=== PATIENT | male | born 1970 | race Hispanic/Latino ===

== ENCOUNTER 2020-11-21 18:19 | Inpatient (IN) | payer MEDICARE ==
[~2020-11-21] VITALS: Ht 180.3 cm; Wt 118.8 kg
[2020-11-21 18:20] VITALS: BP 156/83
[2020-11-21 19:00] VITALS: BP 161/97
[2020-11-21] MEDS ORDERED: VANCOMYCIN 2GM/500ML NS IV ONE ×2 (19:00)
[2020-11-21] MEDS ORDERED: 0.9%NACL 10ML VIAL IVP PRN (19:00)
[2020-11-21 19:51] LABS: HEMATOCRIT 35.9 % (42-54); MEAN CORPUSCULAR HEMOGLOBIN 29.7 pg (27.0-33.0); MEAN CORPUSCULAR HGB CONC 31.8 g/dL (32.0-36.0); MEAN CORPUSCULAR VOLUME 93.5 fL (79-99); RED BLOOD CELL COUNT(AUTO) 3.84 MIL/uL (4.50-6.20)
[2020-11-21 20:10] LABS: ALBUMIN 2.5 g/dL (3.5-5.0); BILIRUBIN,TOTAL 1.1 mg/dL (0.2-1.0); CREATININE 5.9 mg/dL (0.5-1.5); POTASSIUM 4.9 mmol/L (3.5-5.1); TOTAL PROTEIN, SERUM 8.5 g/dL (6.0-8.3)
[2020-11-21] MEDS: 0.9%NACL 50ML 50 ML IV SCH (21:55)
[2020-11-21] MEDS: ZOSYN 3.375GM +NS 50ML IV SCH (21:55)
[2020-11-21] MEDS ORDERED: METO50TA18 PO (22:04)
[2020-11-21] MEDS ORDERED: MONT10TA32 PO (22:04)
[2020-11-21] MEDS ORDERED: FLUT16H NASAL (22:04)
[2020-11-21] MEDS ORDERED: TIMO5DRO35 OD (22:06)
[2020-11-21] MEDS ORDERED: DICL100G31 TP (22:14)
[2020-11-21] MEDS ORDERED: INSU100I35 SQ (22:14)
[2020-11-21] MEDS ORDERED: ACET-2743 PO ×2 (22:35→22:36)
[2020-11-21] MEDS ORDERED: FLUTICASONE PROPIONATE 50MCG/SPRAY 16 GM BOTTLE NS PRN (23:00)
[2020-11-21] MEDS ORDERED: DICLOFENAC SODIUM 100 GM TP PRN (23:00)
[2020-11-21] MEDS ORDERED: ACETAMINOPHEN 500 MG TABLET PO PRN ×2 (23:00)
[2020-11-21] MEDS: MORPHINE 2 MG SYG IVP PRN (23:55)
[2020-11-22] VITALS (7 sets, daily range): BP systolic 117–174; BP diastolic 66–83
[2020-11-22] MEDS: INSULIN HUMULIN 70/30 100 UNIT/ML 3ML SQ SCH ×3 (08:28→16:46)
[2020-11-22] MEDS: ZOSYN 3.375GM +NS 50ML IV SCH ×2 (08:29→22:51)
[2020-11-22] MEDS ORDERED: MONTELUKAST SODIUM 10 MG TAB PO SCH (09:00)
[2020-11-22] MEDS ORDERED: METOPROLOL TARTRATE 50 MG TAB PO SCH (09:00)
[2020-11-22] MEDS: 0.9%NACL 50ML 50 ML IV SCH ×2 (09:57→22:51)
[2020-11-22] MEDS ORDERED: FLUTICASONE PROPIONATE 50MCG/SPRAY 16 GM BOTTLE NS PRN (13:30)
[2020-11-22] MEDS ORDERED: DiphenhydrAMINE HCL 50 MG/ML VIAL IVP PRN (14:00)
[2020-11-22 14:19] LABS: HEMATOCRIT 33.2 % (42-54); MEAN CORPUSCULAR HEMOGLOBIN 29.8 pg (27.0-33.0); MEAN CORPUSCULAR HGB CONC 31.9 g/dL (32.0-36.0); MEAN CORPUSCULAR VOLUME 93.3 fL (79-99); RED BLOOD CELL COUNT(AUTO) 3.56 MIL/uL (4.50-6.20); WHITE BLOOD COUNT (AUTO) 9.4 K/uL (4.8-10.8)
[2020-11-22 14:32] LABS: POTASSIUM 4.7 mmol/L (3.5-5.1)
[2020-11-22 14:36] LABS: INR 1.13 (0.85-1.15); PROTHROMBIN TIME 12.2 SEC (9.6-11.6)
[2020-11-22 14:37] LABS: PARTIAL THROMBOPLASTIN TIME 27.1 SEC (26.3-35.5)
[2020-11-22] MEDS ORDERED: TETANUS/DIPHTHERIA TOXOID [ADULT] 0.5 ML VIAL IM ONE (15:00)
[2020-11-22] MEDS: MONTELUKAST SODIUM 10 MG TAB PO SCH (20:00)
[2020-11-22] MEDS: METOPROLOL TARTRATE 50 MG TAB PO SCH (22:53)
[2020-11-22] MEDS: MORPHINE 2 MG SYG IVP PRN (23:04)
[2020-11-23] VITALS (26 sets, daily range): BP systolic 114–168; BP diastolic 60–97
[2020-11-23] MEDS: INSULIN HUMULIN 70/30 100 UNIT/ML 3ML SQ SCH ×2 (05:42→16:30)
[2020-11-23 06:33] LABS: HEMATOCRIT 31.8 % (42-54); MEAN CORPUSCULAR HEMOGLOBIN 30.1 pg (27.0-33.0); MEAN CORPUSCULAR HGB CONC 32.4 g/dL (32.0-36.0); PLATELET COUNT (AUTO) 231 K/uL (130-400); RED BLOOD CELL COUNT(AUTO) 3.42 MIL/uL (4.50-6.20); RED CELL DISTRIBUTION WIDTH 13.9 % (11.0-15.5); WHITE BLOOD COUNT (AUTO) 8.7 K/uL (4.8-10.8)
[2020-11-23 06:34] LABS: EOSINOPHILS % (AUTO) 5.1 % (0.0-8.0); MONOCYTES % (AUTO) 8.8 % (3.0-13.0); NEUTROPHILS % (AUTO) 75.6 % (40.0-77.0)
[2020-11-23 06:37] LABS: CREATININE 7.8 mg/dL (0.5-1.5); MAGNESIUM 2.3 mg/dL (1.80-2.40); POTASSIUM 5.3 mmol/L (3.5-5.1)
[2020-11-23 07:19] LABS: HEMOGLOBIN A1C 8.6 % (4.0-6.0)
[2020-11-23] MEDS: 0.9%NACL 50ML 50 ML IV SCH ×2 (09:18→21:00)
[2020-11-23] MEDS: ZOSYN 3.375GM +NS 50ML IV SCH ×2 (09:18→21:00)
[2020-11-23] MEDS: MUPIROCIN OINTMENT 22 GM TUBE TP SCH (10:34)
[2020-11-23] MEDS ORDERED: HEPARIN 1,000 UNIT VIAL ONE (15:08)
[2020-11-23] MEDS ORDERED: MIDAZOLAM HCL 1 MG/ML 2ML VIAL ONE (15:09)
[2020-11-23] MEDS ORDERED: FENTANYL CITRATE PF 50 MCG/1 ML 2ML VIAL ONE (15:09)
[2020-11-23] MEDS ORDERED: HEPARIN 10,000 UNIT/10ML (1,000 UNIT/ML) VIAL ONE (15:09)
[2020-11-23] MEDS ORDERED: IODIXANOL 320 MG/ML 100 ML VIAL ONE (15:09)
[2020-11-23] MEDS ORDERED: NITROGLYCERIN 2 MG VIAL IV ONE (15:09)
[2020-11-23] MEDS ORDERED: LIDOCAINE HCL 400MG/20ML VIAL ONE (15:12)
[2020-11-23] MEDS ORDERED: 0.9%NACL 1000ML 1,000 ML IV SCH (16:30)
[2020-11-23] MEDS: MONTELUKAST SODIUM 10 MG TAB PO SCH (23:30)
[2020-11-23] MEDS: METOPROLOL TARTRATE 50 MG TAB PO SCH (23:30)
[2020-11-24] VITALS (7 sets, daily range): BP systolic 116–165; BP diastolic 35–88
[2020-11-24] MEDS: 0.9% NACL 250ML 250 ML IV SCH (01:15)
[2020-11-24] MEDS: VANCOMYCIN KIT 1 GM/250 ML IV.KIT IV SCH (01:15)
[2020-11-24 05:45] LABS: HEMATOCRIT 31.9 % (42-54); MEAN CORPUSCULAR HEMOGLOBIN 30.1 pg (27.0-33.0); MEAN CORPUSCULAR HGB CONC 32.9 g/dL (32.0-36.0); MEAN CORPUSCULAR VOLUME 91.4 fL (79-99); RED BLOOD CELL COUNT(AUTO) 3.49 MIL/uL (4.50-6.20); RED CELL DISTRIBUTION WIDTH 14.3 % (11.0-15.5); WHITE BLOOD COUNT (AUTO) 10.2 K/uL (4.8-10.8)
[2020-11-24 06:00] LABS: CREATININE 6.5 mg/dL (0.5-1.5); POTASSIUM 4.6 mmol/L (3.5-5.1)
[2020-11-24] MEDS: INSULIN HUMULIN 70/30 100 UNIT/ML 3ML SQ SCH ×2 (07:07→21:06)
[2020-11-24] MEDS: ZOSYN 3.375GM +NS 50ML IV SCH ×2 (09:56→20:53)
[2020-11-24] MEDS: 0.9%NACL 50ML 50 ML IV SCH ×2 (09:56→20:53)
[2020-11-24] MEDS: MUPIROCIN OINTMENT 22 GM TUBE TP SCH (09:57)
[2020-11-24] MEDS: MONTELUKAST SODIUM 10 MG TAB PO SCH (20:52)
[2020-11-24] MEDS: METOPROLOL TARTRATE 50 MG TAB PO SCH (20:52)
[2020-11-25] VITALS (19 sets, daily range): BP systolic 101–156; BP diastolic 31–86
[2020-11-25] MEDS: MORPHINE 2 MG SYG IVP PRN
[2020-11-25] MEDS: INSULIN HUMULIN 70/30 100 UNIT/ML 3ML SQ SCH ×2 (04:56→16:30)
[2020-11-25 08:14] LABS: HEPATITIS Bs ANTIGEN SCREEN P Negative (Negative)
[2020-11-25] MEDS: ZOSYN 3.375GM +NS 50ML IV SCH ×2 (09:22→20:42)
[2020-11-25] MEDS: 0.9%NACL 50ML 50 ML IV SCH ×2 (09:22→20:42)
[2020-11-25] MEDS: MUPIROCIN OINTMENT 22 GM TUBE TP SCH (11:05)
[2020-11-25] MEDS ORDERED: LIDOCAINE HCL 400MG/20ML VIAL ONE (12:53)
[2020-11-25] MEDS ORDERED: BUPIVACAINE/PF 0.5% 10ML VIAL ONE (12:53)
[2020-11-25] MEDS ORDERED: ONDANSETRON 4MG INJ ONE (13:03)
[2020-11-25] MEDS ORDERED: MIDAZOLAM HCL 1 MG/ML 2ML VIAL ONE ×2 (13:03→13:26)
[2020-11-25] MEDS ORDERED: LIDOCAINE PF 100MG/5ML (2%) SYRINGE 5ML ONE (13:03)
[2020-11-25] MEDS ORDERED: FENTANYL CITRATE PF 50 MCG/1 ML 2ML VIAL ONE (13:03)
[2020-11-25] MEDS ORDERED: PROPOFOL 10 MG/ML 20ML VIAL IV ONE (13:03)
[2020-11-25] MEDS: MONTELUKAST SODIUM 10 MG TAB PO SCH (20:42)
[2020-11-25] MEDS: METOPROLOL TARTRATE 50 MG TAB PO SCH (20:42)
[2020-11-26] VITALS (22 sets, daily range): BP systolic 106–148; BP diastolic 58–80
[2020-11-26] MEDS: 0.9% NACL 250ML 250 ML IV SCH (02:35)
[2020-11-26] MEDS: VANCOMYCIN KIT 1 GM/250 ML IV.KIT IV SCH (02:35)
[2020-11-26] MEDS: INSULIN HUMULIN 70/30 100 UNIT/ML 3ML SQ SCH ×2 (08:37→16:51)
[2020-11-26] MEDS: MUPIROCIN OINTMENT 22 GM TUBE TP SCH (09:00)
[2020-11-26] MEDS: ZOSYN 3.375GM +NS 50ML IV SCH ×2 (09:28→20:13)
[2020-11-26] MEDS: 0.9%NACL 50ML 50 ML IV SCH ×2 (09:29→20:14)
[2020-11-26] MEDS: MONTELUKAST SODIUM 10 MG TAB PO SCH (20:13)
[2020-11-26] MEDS: METOPROLOL TARTRATE 50 MG TAB PO SCH (20:13)
[2020-11-27 03:30] VITALS: BP 110/62
[2020-11-27 05:43] LABS: HEMATOCRIT 31.8 % (42-54); MEAN CORPUSCULAR HEMOGLOBIN 29.7 pg (27.0-33.0); MEAN CORPUSCULAR HGB CONC 31.8 g/dL (32.0-36.0); MEAN CORPUSCULAR VOLUME 93.5 fL (79-99); RED BLOOD CELL COUNT(AUTO) 3.4 MIL/uL (4.50-6.20); RED CELL DISTRIBUTION WIDTH 14.6 % (11.0-15.5)
[2020-11-27 06:06] LABS: MAGNESIUM 2.2 mg/dL (1.80-2.40); POTASSIUM 4.2 mmol/L (3.5-5.1)
[2020-11-27 07:36] VITALS: BP 139/73
[2020-11-27] MEDS: INSULIN HUMULIN 70/30 100 UNIT/ML 3ML SQ SCH ×2 (08:05→18:03)
[2020-11-27] MEDS: MUPIROCIN OINTMENT 22 GM TUBE TP SCH (09:00)
[2020-11-27] MEDS: ZOSYN 3.375GM +NS 50ML IV SCH ×2 (09:18→20:27)
[2020-11-27] MEDS: 0.9%NACL 50ML 50 ML IV SCH ×2 (09:19→20:27)
[2020-11-27 10:45] VITALS: BP 121/70
[2020-11-27 16:22] VITALS: BP 131/73
[2020-11-27] MEDS: METOPROLOL TARTRATE 50 MG TAB PO SCH (20:26)
[2020-11-27] MEDS: MONTELUKAST SODIUM 10 MG TAB PO SCH (20:26)
[2020-11-27 20:28] VITALS: BP 153/96
[2020-11-27 23:25] VITALS: BP 141/86
[2020-11-28] VITALS (19 sets, daily range): BP systolic 141–191; BP diastolic 70–115
[2020-11-28] MEDS: ZOSYN 3.375GM +NS 50ML IV SCH (08:32)
[2020-11-28] MEDS: 0.9%NACL 50ML 50 ML IV SCH (08:32)
[2020-11-28] MEDS: MUPIROCIN OINTMENT 22 GM TUBE TP SCH (08:33)
[2020-11-28] MEDS: INSULIN HUMULIN 70/30 100 UNIT/ML 3ML SQ SCH (08:35)
[2020-11-28] MEDS: VANCOMYCIN KIT 1 GM/250 ML IV.KIT IV SCH (14:00)
== END 2020-11-28 21:20 | disposition home or self-care (01) | DRG 548 ==
LOC: EDH 18:19 → 3CH 18:20
PROVIDERS: ADMIT Internal Medicine Infectious Disease; ATTEND Internal Medicine Infectious Disease
PROC: 3E0234Z Introduction of Serum, Toxoid and Vaccine into Muscle, Percutaneous Approach (ICD-10-PCS; 2020-11-22)
PROC: B410YZZ Fluoroscopy of Abdominal Aorta using Other Contrast (ICD-10-PCS; 2020-11-23)
PROC: B41FYZZ Fluoroscopy of Right Lower Extremity Arteries using Other Contrast (ICD-10-PCS; 2020-11-23)
PROC: 5A1D70Z Performance of Urinary Filtration, Intermittent, Less than 6 Hours Per Day (ICD-10-PCS; 2020-11-23)
PROC: 0Y9M0ZZ Drainage of Right Foot, Open Approach (ICD-10-PCS; principal; 2020-11-25 13:00)
PROC: 5A1D70Z Performance of Urinary Filtration, Intermittent, Less than 6 Hours Per Day (ICD-10-PCS; 2020-11-26)
PROC: 5A1D70Z Performance of Urinary Filtration, Intermittent, Less than 6 Hours Per Day (ICD-10-PCS; 2020-11-28)
DX: M00.9 Pyogenic arthritis, unspecified (principal); N18.6 End stage renal disease; L02.611 Cutaneous abscess of right foot; L03.116 Cellulitis of left lower limb; L02.416 Cutaneous abscess of left lower limb; M86.8X7 Other osteomyelitis, ankle and foot; E11.52 Type 2 diabetes mellitus with diabetic peripheral angiopathy with gangrene; I12.0 Hypertensive chronic kidney disease with stage 5 chronic kidney disease or end stage renal disease; L03.031 Cellulitis of right toe; E11.69 Type 2 diabetes mellitus with other specified complication; E11.621 Type 2 diabetes mellitus with foot ulcer; E66.01 Morbid (severe) obesity due to excess calories; H54.3 Unqualified visual loss, both eyes; Z20.822 Contact with and (suspected) exposure to COVID-19; D64.9 Anemia, unspecified; E11.22 Type 2 diabetes mellitus with diabetic chronic kidney disease; E11.319 Type 2 diabetes mellitus with unspecified diabetic retinopathy without macular edema; E11.42 Type 2 diabetes mellitus with diabetic polyneuropathy; E78.5 Hyperlipidemia, unspecified; I48.91 Unspecified atrial fibrillation; R53.81 Other malaise; B95.61 Methicillin susceptible Staphylococcus aureus infection as the cause of diseases classified elsewhere; L97.519 Non-pressure chronic ulcer of other part of right foot with unspecified severity; Z74.01 Bed confinement status; Z83.3 Family history of diabetes mellitus; Z86.16 Personal history of COVID-19; Z99.2 Dependence on renal dialysis; Z68.36 Body mass index [BMI] 36.0-36.9, adult; Z88.8 Allergy status to other drugs, medicaments and biological substances; Z82.3 Family history of stroke; Z23 Encounter for immunization
CPT/HCPCS: 36247; 36415; 73718; 75710; 80048; 80053; 80202; 82948; 83036; 83735; 85025; 85027; 85610; 85651; 85730; 86704; 86706; 87040; 87070; 87076; 87077; 87186; 87205; 87340; 87635; 90714; 90935; 93926; 99156; 99157; C1769; C1894; G0378; J1200; J1644; J1815; J2001; J2250; J2405; J2543; J2704; J3010; J3370; J3490; J7030; J7040; J7050; Q9967